=== PATIENT | male | born 1985 | race Caucasian/White ===

== ENCOUNTER → 2021-06-29 | Outpatient (CLI) | payer OTHER ==
[~2021-06-29] MED LIST: AMOXICILLIN500 M2 PO; HYDROCODONE BIT1 T11 PO; MOTRIN800 MG PO; ULTRAM50 MG PO
== END | disposition home or self-care (01) ==
LOC: COVID19 16:30
PROVIDERS: ATTEND Internal Medicine
DX: Z11.52 Encounter for screening for COVID-19 (principal)

== ENCOUNTER 2023-01-17 18:04 | Emergency (ER) | payer OTHER ==
[~2023-01-17] VITALS: Ht 180.3 cm; Wt 68.0 kg
[2023-01-17] MEDS ORDERED: CEPHALEXIN500 M1 PO (19:34)
== END 2023-01-17 19:38 | disposition home or self-care (01) ==
LOC: ED 18:04
DX: L03.012 Cellulitis of left finger (principal); Z98.890 Other specified postprocedural states